=== PATIENT | male | born 2005 | race Hispanic/Latino ===

== ENCOUNTER 2025-07-18 02:47 | Emergency (ER) | payer OTHER ==
[~2025-07-18] VITALS: Ht 182.9 cm; Wt 110.0 kg
[2025-07-18 03:21] VITALS: BP 187/112
== END 2025-07-18 03:22 | disposition home or self-care (01) ==
LOC: ED 02:47
DX: I10 Essential (primary) hypertension (principal); T46.5X6A Underdosing of other antihypertensive drugs, initial encounter; Z91.148 Patient's other noncompliance with medication regimen for other reason; Z02.89 Encounter for other administrative examinations
CPT/HCPCS: 99283